=== PATIENT | female | born 2000 | race Caucasian/White ===

== ENCOUNTER 2019-07-07 15:27 | Emergency (ER) | payer OTHER ==
[~2019-07-07] VITALS: Ht 167.6 cm; Wt 75.3 kg
[~2019-07-07 15:27] MED LIST: CEPH-443 PO; SULF1TAB31 PO
[2019-07-07 15:53] VITALS: Ht 167.6 cm; Wt 75.3 kg
== END 2019-07-07 18:47 | disposition home or self-care (01) ==
LOC: E/R 15:27
DX: L02.31 Cutaneous abscess of buttock (principal)
CPT/HCPCS: 81025; Z7502; 99283